=== PATIENT | female | born 1985 | race African-American/Black ===

== ENCOUNTER 2016-09-13 08:15 | Emergency (ER) | payer SELFPAY ==
[~2016-09-13] VITALS: Ht 177.8 cm; Wt 79.0 kg
[~2016-09-13 08:15] MED LIST: ALBU8I INH; BENZ100 PO; DOXY100T PO
[2016-09-13 08:18] VITALS: BP 134/85; PULSE 85; RESP 16; TEMP 98.7; O2SAT 99
[2016-09-13] MEDS ORDERED: cefTRIAXone 500 MG VIAL IM ONE (08:45)
--- NOTE | 2016-09-13 08:45 | PD ---
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 This patient complains of vaginal discharge. Duration 3 days. Severity is moderate. She denies a fever or chills. She has had occasional pelvic suprapubic cramps. She does not think she is . No vomiting or diarrhea or GI symptoms. No alleviating factors. PFSH Past Medical History Diminished Hearing: No Immunizations Current: Yes ?: Not LMP: 09/01/16 : 5 Para: 2 Miscarriage: 2 Dilation and Curettage (D&C): Yes Social History Alcohol Use: No Tobacco Use: No Substance Use: No Allergies-Medications (Allergen,Severity, Reaction): Coded Allergies: Aspirin (Verified Allergy, Severe, THROAT SWELLS, 09/13/16) Reported Meds & Prescriptions Reported Meds & Active Scripts Active Flagyl (Metronidazole) 500 Mg Tab 500 Mg PO TID Doxycycline Hyclate 100 Mg Cap 100 Mg PO BID Review of Systems General / Constitutional: No: Fever Eyes: No: Visual changes HENT: No: Headaches Cardiovascular: No: Chest Pain or Discomfort Respiratory: No: Shortness of Breath Gastrointestinal: No: Abdominal Pain Genitourinary: Positive: Pelvic Pain, Discharge, No: Dysuria Musculoskeletal: No: Pain Skin: No Rash Neurologic: No: Weakness Psychiatric: No: Depression Endocrine: No: Polydipsia Hematologic/Lymphatic: No: Easy Bruising Physical Exam Narrative GENERAL: Well-nourished, well-developed patient in no apparent distress. SKIN: Focused skin assessment reveals no rash and nodules. Skin is Warm and dry. HEAD: Atraumatic. Normocephalic. EYES: Pupils equal and round. No scleral icterus. No injection or drainage. ENT: No nasal bleeding or discharge. Mucous membranes pink and moist. NECK: Trachea midline. No JVD. CARDIOVASCULAR: Regular rate and rhythm. No murmur appreciated. RESPIRATORY: No accessory muscle use. Clear to auscultation. Breath sounds equal bilaterally. GASTROINTESTINAL: Abdomen soft, non-tender, nondistended. Hepatic and splenic margins not palpable. MUSCULOSKELETAL: No obvious deformities. No clubbing. No cyanosis. No edema. NEUROLOGICAL: Awake and alert. No obvious cranial nerve deficits. Motor grossly within normal limits. Normal speech. PSYCHIATRIC: Appropriate mood and affect; insight and judgment normal. Pelvic: Speculum exam was done. Some cervical motion tenderness. There is a lot of yellowish discharge in the vault. No blood. No adnexal mass. Data Data Last Documented VS Vital Signs Date Time Temp Pulse Resp B/P Pulse Ox O2 Delivery O2 Flow Rate FiO2 09/13/16 08:18 98.7 85 16 134/85 99 Orders Ed Urine Pregnancytest Poc (09/13/16 08:39) Wet Prep Profile (09/13/16 08:39) Gc And Chlamydia Pcr (09/13/16 08:39) Ceftriaxone Inj (Rocephin Inj) (09/13/16 08:47) Labs Laboratory Tests Test 09/13/16 08:45 Clue Cells (Wet Prep) NONE SEEN Vaginal Trichomonas (Wet Prep) NONE SEEN Vaginal Yeast (Wet Prep) NONE SEEN MDM Medical Decision Making Medical Screen Exam Complete: Yes Emergency Medical Condition: Yes Medical Record Reviewed: Yes Differential Diagnosis PID, cervicitis, ectopic Narrative Course I have reviewed the patient's electronic medical record. Patient was here February 2016 for bronchitis Presentation seems most consistent with a mild PID type of case. I gave her 500 mg IM Rocephin Wet prep reveals negative findings GC and chlamydia probe sent Urine is negative Has a soft benign nontender abdomen One week of doxycycline prescribed. Patient reports she's had similar presentations in the past that have responded to Flagyl and she really wants some Flagyl medication. I gave her prescription for that as well. Recommend follow-up with primary care or [employer] physician Diagnosis Primary Impression: Pelvic inflammatory disease (PID) Additional Instructions: The patient was advised to follow up with their physician and return if they worsen. Med/Other Pt SpecificInfo: Prescription(s) given Scripts Metronidazole (Flagyl)500 Mg [id number] Mg PO TID #20 TAB Ref 0 Prov:Vargas Craig MD 09/13/16 Doxycycline Hyclate 100 Mg [id number] Mg PO BID #14 CAP Ref 0 Prov:Vargas Craig MD 09/13/16 Disposition: DISCHARGE HOME Condition: Stable Vargas Craig MD September 13, 2016 08:45
[2016-09-13] MEDS ORDERED: DOXY100C PO (08:46)
[2016-09-13] MEDS ORDERED: METR-1 PO (09:27)
[2016-09-13 15:05] LABS: CHLAMYDIA PCR NOT DETECTED (NOT DETECT); NEISSERIA PCR NOT DETECTED (NOT DETECT)
== END 2016-09-13 09:37 | disposition home or self-care (01) ==
LOC: PHED 08:15
DX: N73.9 Female pelvic inflammatory disease, unspecified (principal)
CPT/HCPCS: 84703; 87210; 87491; 87591; 96372; 99283; J0696

== ENCOUNTER 2016-11-06 21:19 | Emergency (ER) | payer SELFPAY ==
[~2016-11-06] VITALS: Ht 177.8 cm; Wt 77.5 kg
[~2016-11-06 21:19] MED LIST changes: -ALBU8I INH; -BENZ100 PO; +DOXY100C PO; -DOXY100T PO; +METR-1 PO
[2016-11-06 21:49] VITALS: BP 138/97; PULSE 70; RESP 16; TEMP 98.5; O2SAT 100
[2016-11-06] MEDS ORDERED: PENICILLIN V POTASSIUM 500 MG TAB PO ONE (22:00)
[2016-11-06] MEDS ORDERED: LIDOCAINE HCL 1% 50 ML VIAL INFIL ONE (22:00)
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
[2016-11-06] MEDS ORDERED: PENI500T PO (22:01)
== END 2016-11-06 22:15 | disposition home or self-care (01) ==
LOC: PHEFT 21:19
DX: S01.511A Laceration without foreign body of lip, initial encounter (principal); W50.0XXA Accidental hit or strike by another person, initial encounter; Y93.9 Activity, unspecified; Y92.9 Unspecified place or not applicable; Y99.9 Unspecified external cause status
CPT/HCPCS: 99283

== ENCOUNTER 2017-01-09 08:58 | Emergency (ER) | payer SELFPAY ==
[~2017-01-09] VITALS: Ht 177.8 cm; Wt 79.0 kg
[~2017-01-09 08:58] MED LIST changes: -DOXY100C PO; -METR-1 PO; +PENI500T PO
[2017-01-09 09:00] VITALS: BP 136/87; PULSE 77; RESP 16; TEMP 98.6; O2SAT 99
[2017-01-09] MEDS ORDERED: METR-1 PO (09:22)
[2017-01-09] MEDS ORDERED: DOXY100C PO (09:22)
[2017-01-09] MEDS ORDERED: ULTR50TA5 PO (09:22)
--- NOTE | 2017-01-09 09:22 | PD ---
HPI . Pelvic pain Chief Complaint: Neurology Stroke Physician Problem/Complaint Time Seen by Provider: 09:09 Travel History International Travel<30 days: No Contact w/Intl Traveler<30days: No Traveled to known affect area: No History of Present Illness HPI Patient presents with a 2 day history of pelvic pain associated with vaginal discharge. Pain is exacerbated by sexual intercourse. No relieving factor. Pain is rated 7/10. She also reports a foul smell when she urinates. PFSH Past Medical History Diminished Hearing: No Immunizations Current: Yes ?: Unknown LMP: 12/23/16 : 5 Para: 2 Miscarriage: 2 Dilation and Curettage (D&C): Yes Social History Alcohol Use: No Tobacco Use: No Substance Use: No Allergies-Medications (Allergen,Severity, Reaction): Coded Allergies: aspirin (Unverified Allergy, Severe, THROAT SWELLS, 01/09/17) Reported Meds & Prescriptions Reported Meds & Active Scripts Active Ultram (Tramadol HCl) 50 Mg Tab 50 Mg PO Q4H PRN Flagyl (Metronidazole) 500 Mg Tab 500 Mg PO BID Doxycycline Hyclate 100 Mg Cap 100 Mg PO BID Review of Systems Except as stated in HPI: all other systems reviewed are Neg General / Constitutional: No: Fever, Chills Genitourinary: Positive: Pelvic Pain, Dyspareunia, Discharge, No: Dysmenorrhea , Vaginal Bleeding Physical Exam Narrative GENERAL: Awake and alert and in no acute distress. SKIN: Warm and dry. HEAD: Atraumatic. Normocephalic. EYES: Pupils equal and round. NECK: Trachea midline. CARDIOVASCULAR: Regular rate and rhythm. RESPIRATORY: No accessory muscle use. : Normal external female genitalia. Discharge noted at the introitus. Cervical os is closed. No bleeding. Positive cervical motion tenderness, bilateral adnexal tenderness. No masses. MUSCULOSKELETAL: No obvious deformities. No edema. NEUROLOGICAL: Awake and alert. No obvious cranial nerve deficits. Motor grossly within normal limits. Normal speech. PSYCHIATRIC: Appropriate mood and affect; insight and judgment normal. Data Data Last Documented VS Vital Signs Date Time Temp Pulse Resp B/P (MAP) Pulse Ox O2 Delivery O2 Flow Rate FiO2 01/09/17 09:00 98.6 77 16 136/87 (103) 99 Orders Orders Urinalysis - C+S If Indicated (01/09/17 09:06) Ed Urine Pregnancytest Poc (01/09/17 09:06) Gc And Chlamydia Pcr (01/09/17 09:09) Wet Prep Profile (01/09/17 09:09) Ceftriaxone Inj (Rocephin Inj) (01/09/17 09:30) Lidocaine 1% Inj (50 Ml) (Xylocaine 1% I (01/09/17 09:30) Ketorolac Inj (Toradol Inj) (01/09/17 09:30) Urine Culture (01/09/17 09:15) Labs Laboratory Tests Test 01/09/17 09:15 Urine Collection Type CLEAN CATCH Urine Color YELLOW Urine Turbidity SLIGHTY CLOUDY Urine pH 6.5 Urine Specific [place] 1.024 Urine Protein NEG mg/dL Urine Glucose (UA) NEG mg/dL Urine Ketones NEG mg/dL Urine Occult Blood NEG Urine Nitrite NEG Urine Bilirubin NEG Urine Leukocyte Esterase NEG Urine WBC 0-2 /hpf Urine Squamous Epithelial Cells > 8 /hpf Urine Bacteria MOD /hpf Microscopic Urinalysis Comment CULTURE INDICATED Clue Cells (Wet Prep) PRESENT Vaginal Trichomonas (Wet Prep) NONE SEEN Vaginal Yeast (Wet Prep) NONE SEEN MDM Medical Decision Making Medical Screen Exam Complete: Yes Emergency Medical Condition: Yes Differential Diagnosis Differential diagnosis of pelvic pain includes but is not limited to UTI, PID, ectopic , spontaneous AB, constipation, viral illness Narrative Course This patient presents with a two-day history of pelvic pain associated with discharge and dyspareunia. Exam is compatible with PID. I am treating her in the emergency department with IM Rocephin and IM Toradol. She will be discharged with prescriptions for doxycycline, Flagyl and Ultram. Her test is negative. Laboratory Tests Test 01/09/17 09:15 Urine Collection Type CLEAN CATCH Urine Color YELLOW Urine Turbidity SLIGHTY CLOUDY Urine pH 6.5 Urine Specific [place] 1.024 Urine Protein NEG mg/dL Urine Glucose (UA) NEG mg/dL Urine Ketones NEG mg/dL Urine Occult Blood NEG Urine Nitrite NEG Urine Bilirubin NEG Urine Leukocyte Esterase NEG Urine WBC 0-2 /hpf Urine Squamous Epithelial Cells > 8 /hpf Urine Bacteria MOD /hpf Microscopic Urinalysis Comment CULTURE INDICATED Clue Cells (Wet Prep) PRESENT Vaginal Trichomonas (Wet Prep) NONE SEEN Vaginal Yeast (Wet Prep) NONE SEEN Diagnosis Primary Impression: Pelvic inflammatory disease (PID) Patient Instructions: General Instructions, Pelvic Inflammatory Disease (DC) Med/Other Pt SpecificInfo: Prescription(s) given Scripts Tramadol (Ultram) 50 Mg Tab 50 MG PO Q4H Y for PAIN, #12 TAB 0 Refills Prov: Hanny Potts MD 01/09/17 Metronidazole (Flagyl) 500 Mg Tab 500 MG PO BID for Infection, #14 TAB 0 Refills Prov: Hanny Potts MD 01/09/17 Doxycycline Hyclate (Doxycycline Hyclate) 100 Mg Cap 100 MG PO BID for Infection, #20 CAP 0 Refills Prov: Hanny Potts MD 01/09/17 Disposition: 01 DISCHARGE HOME Condition: Stable Hanny Potts MD Jan 09, 2017 09:22
[2017-01-09 09:24] LABS: BLOOD, URINE NEG (NEG); GLUCOSE,URINE NEG (NEG); KETONE, URINE NEG (NEG); NITRITE,URINE NEG (NEG); PH, URINE 6.5 (5.0-8.5)
[2017-01-09 09:26] LABS: METHOD OF COLLECTION CLEAN CATCH; URINE COLOR YELLOW (YELLW/STRAW)
[2017-01-09 09:29] LABS: BACTERIA, URINE MOD /hpf; COMMENT (UR) CULTURE INDICATED; CULTURE IF INDICATED CULTURE INDICATED; SQUAMOUS EPITHELIAL CELL URINE > 8 /hpf (0-5); WBC, URINE 0-2 /hpf (0-5)
[2017-01-09] MEDS ORDERED: KETOROLAC TROMETHAMINE 60 MG/2 ML (IM) VIAL IM ONE (09:30)
[2017-01-09] MEDS ORDERED: cefTRIAXone 250 MG VIAL IM ONE (09:30)
[2017-01-09] MEDS ORDERED: LIDOCAINE HCL 1% 50 ML VIAL IM ONE (09:30)
[2017-01-09 10:05] VITALS: RESP 16
[2017-01-09 15:28] LABS: CHLAMYDIA PCR NOT DETECTED (NOT DETECT); NEISSERIA PCR NOT DETECTED (NOT DETECT)
== END 2017-01-09 10:11 | disposition home or self-care (01) ==
LOC: PHED 08:58
DX: N73.9 Female pelvic inflammatory disease, unspecified (principal)
CPT/HCPCS: 81001; 84703; 87086; 87210; 87491; 87591; 96372; 99284; J0696; J1885